=== PATIENT | male | born 1940 | race Caucasian/White ===

== ENCOUNTER → 2021-10-07 13:14 | Outpatient (BNVA) | payer MEDICARE, SELFPAY | PROVIDERS: PCP Family Medicine; Visit Provider Urology | DX: N40.1 Benign prostatic hyperplasia with lower urinary tract symptoms (principal); R33.8 Other retention of urine; N52.9 Male erectile dysfunction, unspecified; N39.0 Urinary tract infection, site not specified | CPT/HCPCS: 51798; 99212 ==

== ENCOUNTER → 2022-02-26 15:14 | Outpatient (BNVA) | payer MEDICARE, SELFPAY | PROVIDERS: PCP Family Medicine; Visit Provider Urology | DX: N40.1 Benign prostatic hyperplasia with lower urinary tract symptoms (principal); R33.8 Other retention of urine | CPT/HCPCS: 51798; 99212 ==

== ENCOUNTER 2022-08-25 14:28 | Outpatient (REF) | payer MEDICARE, SELFPAY ==
--- NOTE | ~2022-08-25 | US_ITS ---
EXAMINATION: US RETROPERITONEAL LIMITED (RENAL ONLY) CLINICAL INFORMATION: Benign prostatic hyperplasia with lower urinary tract symptoms. COMPARISON: None TECHNIQUE: Real-time imaging of the kidneys. FINDINGS: RIGHT KIDNEY: 12.6 x 5.7 x 5.6 cm (SAG x AP x TRV). The kidney is normal in size, contour, and echogenicity. Renal cortical thickness is normal. No hydronephrosis. There is anechoic cyst lower pole measuring 4.5 x 3.8 x 4.4 cm and 5.2 x 4.5 x 5.1 cm. There is an echogenic stone upper pole measuring 0.5 x 0.3 cm. LEFT KIDNEY: 9.5 x 5.2 x 4.6 cm (SAG x AP x TRV). The kidney is normal in size, contour, and echogenicity. Renal cortical thickness is normal. No calculi or focal parenchymal lesions. No hydronephrosis. US/US retroperitoneal limited IMPRESSION: 1. 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 2. Nonobstructive echogenic stone upper pole right kidney. 3. The left kidney is unremarkable.
== END 2022-08-25 14:29 | disposition home or self-care (01) ==
LOC: HO.US 14:28
PROVIDERS: Visit Provider Urology
DX: N40.1 Benign prostatic hyperplasia with lower urinary tract symptoms (principal); R33.9 Retention of urine, unspecified
CPT/HCPCS: 76775

== ENCOUNTER 2022-08-31 13:42 | Outpatient (REF) | payer MEDICARE, SELFPAY | END 2022-08-31 13:43 | disposition home or self-care (01) | LOC: HO.LAB 13:42 | PROVIDERS: PCP Family Medicine; Visit Provider Nurse Practitioner Family | DX: N40.1 Benign prostatic hyperplasia with lower urinary tract symptoms (principal); R33.9 Retention of urine, unspecified; R82.998 Other abnormal findings in urine | CPT/HCPCS: 51798; 87086; 87088; 87186; 99212 ==

== ENCOUNTER 2022-10-29 11:19 | Outpatient (REF) | payer MEDICARE, SELFPAY ==
[2022-10-29 16:43] LABS: Urine Cytology See Pathology rpt
== END 2022-10-29 11:20 | disposition home or self-care (01) ==
LOC: HO.LAB 11:19
PROVIDERS: PCP Family Medicine; Visit Provider Nurse Practitioner Family
DX: N40.1 Benign prostatic hyperplasia with lower urinary tract symptoms (principal); R33.9 Retention of urine, unspecified
CPT/HCPCS: 51798; 88112; 99212

== ENCOUNTER 2023-04-26 10:04 | Outpatient (REF) | payer MEDICARE, SELFPAY | END 2023-04-26 10:05 | disposition home or self-care (01) | LOC: HO.10HDL 10:04 | PROVIDERS: Visit Provider Nurse Practitioner Family | DX: N40.1 Benign prostatic hyperplasia with lower urinary tract symptoms (principal); R33.8 Other retention of urine; Z12.5 Encounter for screening for malignant neoplasm of prostate | CPT/HCPCS: 36415; 84153 ==